=== PATIENT | female | born 1985 | race Caucasian/White ===

== ENCOUNTER → 2024-03-04 | Day surgery (SDC) | payer MEDICAID ==
[~2024-03-04] VITALS: Ht 144.8 cm; Wt 69.4 kg
[~2024-03-04] MED LIST: APIX5TAB PO; ATOR-2 PO; FENTANYL CITRATE/PF 50MCG/ML 2ML VIAL ONE; LIDOCAINE 2% 6ML GLYDO MM ONE; MIDAZOLAM HCL 2 MG/2 ML VIAL ONE; TETRACAINE/BENZOCAINE/BUTAMBEN 20 GM SPRAY MM ONE
[2024-03-04 09:45] LABS: UCG KIT LOT# 819946; UCG SCREEN NEGATIVE
[2024-03-04 09:52] LABS: BASOPHILS % 0.6 % (0.0-2.0); EOSINOPHILS % 1.9 % (0.0-5.0); HEMATOCRIT. 41.9 % (36.0-48.0); HEMOGLOBIN. 13.7 g/dL (12.0-16.0); LYMPHOCYTES % 33.5 % (20.0-50.0); MEAN CORPUSCULAR HEMOGLOBIN 30.5 pg (28.0-32.0); MEAN CORPUSCULAR HGB CONC 32.7 g/dL (31.0-37.0); MEAN CORPUSCULAR VOLUME 93.4 fL (81.0-99.0); MEAN PLATELET VOLUME 10.2 fl (7.4-10.4); MONOCYTES % 6.9 % (2.0-8.0); NEUTROPHILS % 57.1 % (40.0-76.0); PLATELET 169 x1000/uL (130-400); RED BLOOD CELL COUNT 4.49 mill/uL (4.2-5.4); RED CELL DISTRIBUTION WIDTH 13.3 % (11.6-14.6); WHITE BLOOD COUNT 6.4 x1000/uL (4.5-11.0)
[2024-03-04 09:53] LABS: POTASSIUM 3.9 mEq/L (3.5-5.1)
[2024-03-04 09:59] LABS: CREATININE 1.1 mg/dL (0.6-1.0)
[2024-03-04] MEDS: SODIUM CHLORIDE 0.45% 500 ML IV ONE (10:49)
== END | disposition home or self-care (01) ==
LOC: OR 09:07
PROVIDERS: ATTEND Internal Medicine Cardiovascular Disease
DX: I63.89 Other cerebral infarction (principal); Q21.12 Patent foramen ovale; E78.5 Hyperlipidemia, unspecified; Z79.899 Other long term (current) drug therapy; Z98.890 Other specified postprocedural states; Z20.822 Contact with and (suspected) exposure to COVID-19
CPT/HCPCS: 93312; 87426; 80048; 81025; 85025; 36415; 93005; J3010; J2250